=== PATIENT | female | born 1930 | race Caucasian/White ===

== ENCOUNTER 2016-06-22 12:34 | Inpatient (IN) | payer MEDICARE ==
[~2016-06-22] VITALS: Ht 167.6 cm; Wt 75.6 kg
[~2016-06-22 12:34] MED LIST: ACID REDUCER10 MG PO; ALDACTONE 25MG25 MG NG; ALDACTONE 25MG25 MG PO; ARICEPT 5MG TAB5 MG PO; ASPIRIN 81MG TA81 MG PO; ASPIRIN EC325 MG PO; ATORVASTATIN CA20 M1 PO; ATORVASTATIN CA20 MG PO; AVAPRO 150MG T150 MG PO; BACTRIM DS 8001 TAB PO; CALCIUM 600/VIT1 CAP PO; CALCIUM 600MG+D1 TAB PO; CEFDINIR300 M1 PO; CENTRUM SILVER1 TAB PO; CIPRO 500MG TA500 MG PO; COMBIVENT INH14.7 GM IN; COMBIVENT RESPI1 SPR IH; COMBIVENT1 ARO IH; CRESTOR10 MG PO; DEMADEX20 MG PO; DETROL LA 2 MG C2 MG PO; DETROL LA4 MG PO; DOCUSATE SODIU250 M1 PO; DONEPEZIL 10MG10 MG PO; DONEPEZIL 5MG TA5 MG PO; FAMOTIDINE 20MG20 MG PO; FAMOTIDINE20 MG PO; FERROUS SULFAT200 M1 PO; FERROUS SULFAT325 M2 PO; FLEXERIL10 M1 PO; FLONASE 50 MCG16 GM; FUROSEMIDE40 MG PO; GABAPENTIN100 M1 PO; GLIPIZIDE 5MG TA5 MG PO; GOOD NEIGHBOR P10 M1 PO; IBU600 MG PO; K-DUR 1010 MEQ PO; LASIX20 MG PO; LEADER NATURA500 MCG PO; LEVAQUIN500 MG PO; LEVOFLOXACIN250 MG PO; LIPITOR10 MG PO; LISINOPRIL 20MG20 MG PO; LORTAB 5/3251 TAB PO; LOSARTAN POTASS50 MG PO; MACROBID 100MG100 MG PO; MACROBID100 M3 PO; MEDROL 4MG. DOSE4 MG PO; METOLAZONE 2.52.5 MG PO; METOPROLOL 25 M25 MG PO; MORPHINE 2MG.2 MG/ML IJ; MULTI VITAMINS1 TAB PO; NAMENDA XR7 MG PO; NAMENDA10 MG PO; NAMZARIC1 ECC PO; NYSTATIN 1100000 UNI PO; OMNICEF 300 MG300 MG PO; ONDANSETRON4 MG/2 M2 IJ; OXYBUTYNIN CHLOR5 M1 PO; OXYBUTYNIN5 MG PO; PANTOPRAZOLE SO40 M1 PO; POTASSIUM CHLO10 ME1 PO; POTASSIUM CHLO10 ME3 PO; POTASSIUM CHLO20 ME2 PO; PREDNISONE1 MG PO; PROAIR HFA0.09 MG/AC IH; PROTONIX 40MG T40 MG PO; REQUIP0.5 MG PO; SEPTRA DS 800 M1 TAB PO; SPIRONOLACTONE25 MG PO; STERAPRED5 MG PO; TESSALON PERLE100 MG PO; TOLTERODINE TART4 MG PO; TORSEMIDE 20MG20 MG PO; TORSEMIDE20 M1 PO; TORSEMIDE20 MG PO; TYLENOL W/CODEI1 TA1 PO; TYLENOL325 MG PO; VITAMIN B121000 MC2 PO; VITAMIN D1000 IU PO; XYZAL5 MG PO; ZANTAC 150150 MG PO
[2016-06-22 12:36] VITALS: BP 105/56
--- NOTE | 2016-06-22 13:07 | Emergency Room Report ---
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 PT WAS NOTED TO BE DIAPHORETIC BY EMS. 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 N Clinical Suspician of Infection? N Mental Status: 3 - Acutely Altered Sepsis Risk:Possible Sepsis Risk Have you (or family members/close friends) recently traveled outside the [place]? N If Yes, where/when: Have you had exposure to infectious disease within the past month? TB? Other? Specify: Source patient, RN notes reviewed Exam Limitations no limitations Comment Sent to the ED today from [place] with history that she has lost all control of bowels and urine. EMS noted pt to be diaphoretic when they picked her up to bring her here. She has history of being in the [place] in [facility] since Dec. but has been getting weaker and weaker and today not able to ambulate and no control of urine or bowels. She has history of Alzheimer's, CAD with CABG, CHF and CKD as well. Cardiac Chest Pain Chest pain indicative of cardiac No ALLERGIES Coded Allergies: adhesive tape (09/27/15) betamethasone (09/27/15) ibuprofen (09/27/15) theophylline (09/27/15) Home Medications Active Scripts Acetaminophen (Tylenol) 650 MG PO Q8HP PRN BREAKTHROUGH MOD TO SEV PAIN 30 Days Ref 2 Prov: 05/05/16 HYDROCODONE/ACETAMINOPHEN (Lortab 5-325 MG Tablet) 1 TAB PO QID #120 TAB Prov: 10/13/15 Gabapentin (Gabapentin 100MG) 200 MG PO QHS #2 CAPSULE Ref 2 Prov: 10/13/15 Reported Medications ASPIRIN (Aspirin) 81 MG PO DAILY Spironolactone (Aldactone) 25 MG PO DAILY MEMANTINE HCL/DONEPEZIL HCL (Namzaric 28 MG-10 MG Capsule) 1 ECC PO DAILY Ferrous Sulfate (Ferrous Sulfate 325MG) 325 MG PO BID Potassium Chloride (K-Tab ER) 10 MEQ PO BID Furosemide (Lasix) 20 MG PO BID LEVOCETIRIZINE DIHYDROCHLORIDE (Xyzal) 5 MG PO QOD Pantoprazole Sodium (Protonix 40MG TAB) 40 MG PO DAILY ROPINIROLE HCL (Ropinirole 1MG) 1 MG PO TID History Medical History General CAD? No Angina: Yes [place]: No Hypertension? Yes Hyperlipidemia? Yes CHF? Yes DVT? No PE? No COPD? Yes Asthma? Yes Anemia? Yes GERD? Yes Gastric ulcers? No GI Bleed? No Hernia? No Thyroid Problems? No Hypothyroidism? No CVA? No Seizures? No Diabetes? No Renal Insuffiency? No End Stage Renal Disease? No UTI? No Stones? No BPH? No GB Disease: Yes Nephritic Syndrome? No Asplenia? No Hepatitis? No Sickle Cell Disease? No Arthritis? Yes Migraines? No Cataracts? Yes Glaucoma? No MRSA? No HIV? No TB? No Anxiety? No Depression? Yes Cancer? No More? No Additional hx: DEMENTIA BLADDER CONTROL BLE EDEMA Immunization Hx DT/Tetanus Unknown Flu 2016 Pneumonia Received In Past Surgical Hx Previous Surgery?Y GALLBLADDEER CABGX4 Eyes-cataracts Hysterect Gallbladd AAA REPAIR R HIP LT HIP Family History Family Hx Diabetes Yes CAD Yes Hypertension Yes Hyperlipidemia Yes Cancer Yes TB No Social History Smoking Hx Smoker: Former Smoker Tobacco: No Type N/A Packs/day N/A Are you/the child exposed to second-hand smoke: No Alcohol Alcohol: No Review of Systems All Other Systems Reviewed and Negative Constitutional see HPI, diaphoresis Eyes see HPI Respiratory denies no symptoms reported Cardiovascular denies no symptoms reported Gastrointestinal see HPI Genitourinary see HPI. Skin see HPI Physical Exam Vital Signs Vital Signs Date Time Temp Pulse Resp B/P Pulse O2 O2 Flow FiO2 Ox Delivery Rate 06/22 1608 63 20 93/47 97 06/22 1528 63 20 98/51 98 06/22 1444 67 20 97/42 99 06/22 1409 72 20 93/35 90 06/22 1406 72 101/50 06/22 1330 71 20 135/51 91 06/22 1327 70 103/53 06/22 1327 70 107/57 06/22 1236 98.7 92 20 105/56 91 General Appearance moderate distress Ear, Nose, Throat dry mucous membranes Respiratory Status No: respiratory distress. Lung Sounds bilateral: normal breath sounds. Cardiovascular normal exam, regular rate/rhythm Gastrointestinal normal bowel sounds, normal exam, non tender Extremities trace edema Neurologic confused but says she does not feel well Medical Decision Making LABS/Meds/Orders Pt receiving controlled substance in ED? No Results/Orders Laboratory Tests 06/22/16 1345: Lactic Acid 2.1 H 06/22/16 1340: Urine Color YELLOW, Urine Appearance CLOUDY, Urine pH 6.0, Ur Specific [place] 1.020, Urine Protein 2+ H, Urine Ketones NEGATIVE, Urine Blood 2+ H, Urine Nitrate NEGATIVE, Urine Bilirubin NEGATIVE, Urine Urobilinogen 0.2, Ur Leukocyte Esterase 1+ H, Urine RBC 20-50, Urine WBC 20-50, Ur Squamous Epith Cells OCC, Urine Bacteria 4+, Urine Glucose NEGATIVE 06/22/16 1250: B-Natriuretic Peptide 213 H 06/22/16 1250: Sodium 142, Potassium 4.0, Chloride 102, Carbon Dioxide 29, BUN 33 H, Creatinine 2.4 H, Estimated Creat Clear 20 L, Estimated GFR (MDRD) 19 *L, Glucose 145 H, Calcium 9.1, Total Bilirubin 0.8, AST 104 H, ALT 83 H, Alkaline Phosphatase 220 H, Creatine Kinase 117, CK-MB (CK-2) Rel Index 0.5, CK and CKMB Interp 0.6, Troponin I 0.12 H, Total Protein 6.7, Albumin 3.1 L, Globulin 3.6 H, Albumin/Globulin Ratio 0.9 L, WBC 26.8 *H, RBC 4.48, Hgb 14.2, Hct 43.6, MCV 97.2, RDW 13.2, Plt Count 227, MPV 7.0 L, Gran % 93.3 H, Gran # 25.0 H, Total Counted 100, Lymphocytes % 2.5 L, Monocytes % 3.0, Eosinophils % 0.8, Basophils % 0.4, Neutrophils 79 H, Band Neutrophils 12 H, Lymphocytes ( Manual) 5 L, Lymphocytes # 0.7, Monocytes (Manual) 4, Monocytes # 0.8, Eosinophils # 0.2, Basophils # 0.1, Platelet Estimate NORMAL, PUBS MCHC 32.5, MCH 31.6 H 06/22/16 1239: Influenza Type A Ag NOT DETECTED, Influenza Type B Ag NOT DETECTED Current Medication Orders Sig/Rell Start time Last Medication Dose Route Stop Time Status Admin Sodium Chloride 1,000 ML .STK-MED ONE 06/22 1637 DC IV Sodium Chloride 50 ML .STK-MED ONE 06/22 1529 DC IV Piperacillin Sod/ 0 .STK-MED ONE 06/22 1521 DCr Tazobactam Sod .ROUTE Piperacillin Sod/ 3.375 GM ONCE ONE 06/22 1445 DCr 06/22 Tazobactam Sod IV 06/22 1514 1545 Sodium Chloride 50 ML Sodium Chloride 1,000 ML .Q4H 06/22 1330 AC 06/22 IV 06/22 1729 1331 Sodium Chloride 10 ML PRN PRN 06/22 1330 AC 06/22 IV 06/23 1317 1331 Sodium Chloride 10 ML PRN PRN 06/22 1330 AC IV 06/23 1323 Sodium Chloride 1,000 ML .STK-MED ONE 06/22 1329 DC IV Orders Procedure Date/time Status DIET-NOTHING BY MOUTH 06/[address] ABD/PELVIS REQ 06/22 1435 Complete LACTIC ACID FOLLOW UP 06/22 1423 Active BRAIN NATRIURETIC PEPTIDE 06/22 1404 Complete IV SALINE LOCK 06/22 1323 Active CULTURE, BLOOD 06/22 1320 Active ELECTROCARDIOGRAM REQUEST 06/22 1319 Active CHEST-PORTABLE 06/22 1319 Active ORTHOSTATIC B/P 06/22 1319 Active CULTURE, URINE 06/22 1319 Active CULTURE, BLOOD 06/22 1319 Active URINALYSIS/COMPLETE 06/22 1319 Complete LACTIC ACID 06/22 1319 Complete DIARRHEA PANEL, PCR 06/22 1319 Active CBC WITH AUTO DIFF 06/22 1319 Complete CARDIAC ENZYMES 06/22 1319 Complete CHEM 12 PROFILE 06/22 1319 Complete DIFFERENTIAL-WBC 06/22 1250 Complete INFLUENZA A&B ANTIGENS 06/22 1249 Complete 12 LEAD EKG-BESSON (INITIAL) 06/22 UNK Active XRAY/CT/US XRAY/CT/US XRAY chest, abdomen XR interpretation by reviewed by me Xray Results normal/NAD Departure Departure Time of Disposition 1647 Disposition Still a Patient Clinical Impression Primary Impression: Acute pyelonephritis Secondary Impressions: Sepsis Qualifiers: Sepsis type: sepsis due to unspecified organism Qualified Code: A41.9 - Sepsis, unspecified organism Condition STABLE Referrals Domenico Cole MD (Family) Additional Instructions Admitted for IVF"s and IV antibiotics by Dr. Cole and stabilization. Discharge Counseling Counseled pt/family regarding diagnosis, test results, medications/RX, follow up needs ED Critical Care Critical Care No If Critical Care minutes are documented, the time involved in the performance of seperately reportable procedures was not counted toward critical care time documented. I directly delivered medical care to this critically ill and/or injured patient. Timely evaluation and treatment was necessary to address the significant organ system(s) dysfunction present in this patient. at 1650
[2016-06-22 13:40] LABS: LYMPH # 0.7 K/mm3 (0.7-4.5); LYMPH % 2.5 % (10-50.0)
[2016-06-22 13:49] LABS: URINE BILIRUBIN - DIPSTICK NEGATIVE (NEG); URINE BLOOD 2+ (NEG)
[2016-06-22 13:54] LABS: URINE SQUAMOUS CELLS OCC #/hpf (0-5)
[2016-06-22 14:13] LABS: HEMOGLOBIN 14.2 g/dL (12.2-16.2)
[2016-06-22 14:15] LABS: NEUTROPHILS 79 % (42-76)
[2016-06-22] MEDS ORDERED: ROPINIROLE 0.0.25 MG PO (14:18)
--- NOTE | 2016-06-22 15:23 | RADIOLOGY REPORT PS360 ---
ABDOMEN-FLAT UPRIGHT COMPARISON: KUB 07/21/2014 HISTORY: Shortness of breath abdominal pain TECHNIQUE: PA chest KUB and upright abdomen FINDINGS: The lung churchill are well expanded. There are coarse bronchovascular markings in the right lower lobe suggesting postinflammatory scarring. The right upper lung field and left lung field are clear. Cardiac size is normal though there is mild aortic tortuosity. There are sternal wire sutures noted. Abdominal films show an increased amount of large and small bowel gas in a nonobstructive pattern. There are no abnormal soft tissue shadows. There are Surgical clips overlying the lower lumbar spine and there is mild dextroscoliotic curvature of the lumbar spine. There are bilateral hip prosthesis IMPRESSION: 1. Nonacute chest findings. 2. Mildly abnormal nonspecific bowel gas pattern likely consistent with mild gastroenteritis.
--- NOTE | 2016-06-22 15:40 | RADIOLOGY REPORT PS360 ---
CT ABD PELVIS W/O CONTRAST COMPARISON: CT scan abdomen pelvis 05/18/2015 HISTORY: Abdominal pain generalized weakness TECHNIQUE: Multiple axial scans obtained from the hemidiaphragms to the pelvic floor and were performed without IV or oral contrast. Sagittal and coronal reformatted images were evaluated as well. FINDINGS: Scans through the lower chest show post inflammatory pleural and parenchymal scarring in the right lower lobe and right posterior gutter. There is a large hiatal hernia. The remainder of the stomach appears normal. The liver is grossly normal. Spleen is normal size containing multiple calcifications. The pancreas is normal, there has been a previous cholecystectomy. The adrenal glands are normal. The kidneys are normal in size, there is a nonobstructing calculus midpole left kidney, there is no obstructive uropathy of either kidney. However there is some mild stranding of Gerota's fascia around the right kidney compared to the left and pyelonephritis right kidney is a possibility. Small bowel appears grossly normal. Do not definitely identify the appendix but there are no pericecal inflammatory changes noted. There is liquid stool in the cecum and ascending colon. There is prominent diffuse diverticulosis of the lower descending and sigmoid colon. There is no obvious evidence of diverticulitis however there is prominent streak artifact crossing the middle lower pelvis secondary to the bilateral total hip prosthesis. The urinary bladder is grossly normal. There has been a previous hysterectomy. There is a compression fracture of L2 with approximately 40% loss of height which has occurred since the previous CT scan in May 2015. There is no significant retropulsion of the partially collapsed vertebrae. The spinal canal is normal in size throughout. There are marked hypertrophic facet changes L4-5 and L5-S1. There is prominent arteriosclerotic calcification of the abdominal aorta with borderline aneurysmal dilatation of the infrarenal aorta just above the bifurcation. IMPRESSION: 1. Large hiatal hernia. 2. Diffuse diverticulosis of the lower descending and sigmoid colon without definite evidence of diverticulitis though portions of the lower sigmoid colon are obscured by streak artifact 3. 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 4. Subtle stranding of Gerota's fascia right kidney possibly secondary to pyelo nephritis 5 Semiacute compression fracture L2
[2016-06-22 17:33] LABS: ARTERIAL PO2 69.6 MMHG (80-100); ARTERIAL TCO2 18.6 MMOL/L (23-27)
[2016-06-22 17:34] LABS: ALLEN'S TEST Y; OXYGEN 3
[2016-06-22 17:49] LABS: HEMOGLOBIN 14.5 g/dL (12.2-16.2); LYMPH # 0.6 K/mm3 (0.7-4.5); LYMPH % 40.4 % (10-50.0)
[2016-06-22 18:40] VITALS: BP 145/57
[2016-06-22 18:44] VITALS: BP 145/57
[2016-06-22 19:27] LABS: LYMPH # 0.3 K/mm3 (0.7-4.5); LYMPH % 14.7 % (10-50.0)
[2016-06-22 19:59] VITALS: BP 93/44
[2016-06-22 23:45] VITALS: BP 94/50
[2016-06-23] VITALS (9 sets, daily range): BP systolic 83–107; BP diastolic 40–64
[2016-06-23 07:50] LABS: LYMPH # 0.7 K/mm3 (0.7-4.5); LYMPH % 2.6 % (10-50.0)
[2016-06-23 07:59] LABS: HEMOGLOBIN 11.5 g/dL (12.2-16.2)
--- NOTE | 2016-06-23 08:16 | HISTORY AND PHYSICAL REPORT ---
Demographics: Admit date: 06/22/16 Chief complaint: MS changes, fever PRIMARY DIAGNOSIS: PYELONEPHRITIS Allergies: Coded Allergies: adhesive tape (09/27/15) betamethasone (09/27/15) ibuprofen (09/27/15) theophylline (09/27/15) History of present illness: History of present illness: 85-year-old skilled nursing resident with Alzheimer's dementia and history of repetitive urinary tract infections who was brought to the emergency department because of fever, mental status change and diarrhea. Found to have leukocytosis, evidence of sepsis and admitted to hospital for sepsis protocol, broad-spectrum antibiotics and fluids. This morning daughter reports that she rested comfortably overnight, but has not been able to eat or have significant conversations. Past medical history: Family HX Diabetes Yes CAD Yes Hypertension Yes Hyperlipidemia Yes Cancer Yes TB No Immunization HX DT/Tetanus Unknown Flu 2016 Pneumonia Received In Past TB Test in last year Yes Result Negative General CAD? No Angina: Yes DC: No Hypertension? Yes Hyperlipidemia? Yes CHF? Yes DVT? No PE? No COPD? Yes Asthma? Yes Anemia? Yes GERD? Yes Gastric ulcers? No GI Bleed? No Hernia? No Thyroid Problems? No Hypothyroidism? No CVA? No Seizures? No Diabetes? No Renal Insuffiency? No UTI? No Stones? No BPH? No GB Disease: Yes Nephritic Syndrome? No Asplenia? No Hepatitis? No Sickle Cell Disease? No Arthritis? Yes Migraines? No Cataracts? Yes Glaucoma? No MRSA? No HIV? No TB? No Anxiety? No Depression? Yes Cancer? No More? No Additional hx: DEMENTIA BLADDER CONTROL BLE EDEMA Past Surgical HX Previous Surgery?Y GALLBLADDEER CABGX4 Eyes-cataracts Hysterect Gallbladd AAA REPAIR R HIP LT HIP Current home meds: Active Scripts Acetaminophen (Tylenol) 650 MG PO Q8HP PRN BREAKTHROUGH MOD TO SEV PAIN 30 Days Ref 2 Prov: 05/05/16 HYDROCODONE/ACETAMINOPHEN (Lortab 5-325 MG Tablet) 1 TAB PO QID #120 TAB Prov: 10/13/15 Gabapentin (Gabapentin 100MG) 200 MG PO QHS #2 CAPSULE Ref 2 Prov: 10/13/15 Reported Medications ASPIRIN (Aspirin) 81 MG PO DAILY Spironolactone (Aldactone) 25 MG PO DAILY MEMANTINE HCL/DONEPEZIL HCL (Namzaric 28 MG-10 MG Capsule) 1 ECC PO DAILY Ferrous Sulfate (Ferrous Sulfate 325MG) 325 MG PO BID Potassium Chloride (K-Tab ER) 10 MEQ PO BID Furosemide (Lasix) 20 MG PO BID LEVOCETIRIZINE DIHYDROCHLORIDE (Xyzal) 5 MG PO QOD Pantoprazole Sodium (Protonix 40MG TAB) 40 MG PO DAILY ROPINIROLE HCL (Ropinirole 1MG) 1 MG PO TID Social Hx: Smoking HX Tobacco No Type N/A Packs/day N/A Are you/the child exposed to second-hand smoke: No Alcohol Alcohol: No Hx of Drug Use Drug Use? No Patien't marital status is Patient's support system is excellent Comment: Maintains DNR status a local skilled nursing Review of systems: Constitutional fever, malaise, weakness. Respiratory No: no symptoms reported. Cardiovascular No no symptoms reported Gastrointestinal/Abdominal see HPI Genitourinary see HPI. Musculoskeletal see HPI. Neurological Yes: weakness. Exam: Lab data for last 24 hours: Laboratory Tests 06/23/16 0620: Sodium 144, Potassium 4.4, Chloride 106, Carbon Dioxide 25, BUN 38 H, Creatinine 2.7 H, Estimated Creat Clear 17 L, Estimated GFR (MDRD) 17 *L, Glucose 111 H, Calcium 8.0 L, WBC 28.5 *H, RBC 3.63 L, Hgb 11.5 L, Hct 34.9 L, MCV 96.2, RDW 13.3, Plt Count 169, MPV 6.8 L, Gran % 95.3 H, Gran # 27.1 H , Lymphocytes % 2.6 L, Monocytes % 1.8, Eosinophils % 0.1, Basophils % 0.2, Lymphocytes # 0.7, Monocytes # 0.5, Eosinophils # 0.0, Basophils # 0.1, PUBS MCHC 32.5, MCH 31.3 H 06/22/162057: POC Glucose 97 06/22/161814: Creatine Kinase 138, CK-MB (CK-2) Rel Index 0.8, CK and CKMB Interp 1.1, Troponin I 0.06, WBC 2.4 L, RBC 4.36, Hgb 14.0, Hct 42.1, MCV 96.5, RDW 13.2, Plt Count 180, MPV 6.9 L, Gran % 83.1 H, Gran # 2.0, Lymphocytes % 14.7, Monocytes % 2.0, Eosinophils % 0.3, Basophils % 0.0 L, Lymphocytes # 0.3 L, Monocytes # 0.1, Eosinophils # 0.0, Basophils # 0.0, PUBS MCHC 33.3, MCH 32.1 H 06/22/16 1740: Sodium 145, Potassium 4.9, Chloride 105, Carbon Dioxide 25, BUN 32 H, Creatinine 2.5 H, Estimated Creat Clear 19 L, Estimated GFR (MDRD) 18 *L, Glucose 122 H, Calcium 8.3 L, Total Bilirubin 0.6, AST 76 H, ALT 73, Alkaline Phosphatase 206 H, Total Protein 6.0 L, Albumin 2.9 L, Globulin 3.1, Albumin/ Globulin Ratio 0.9 L, WBC 1.5 *L, RBC 4.55, Hgb 14.5, Hct 44.9, MCV 98.6 H, RDW 13.1, Plt Count 198, MPV 6.7 L, Gran % 53.4, Gran # 0.8 *L, Lymphocytes % 40.4, Monocytes % 5.5, Eosinophils % 0.3, Basophils % 0.4, Lymphocytes # 0.6 L, Monocytes # 0.1, Eosinophils # 0.0, Basophils # 0.0, PUBS MCHC 32.3, MCH 31.9 H 06/22/16 1732: ABG pH 7.35, ABG pCO2 (Temp Corrct 32.9 L, ABG pO2 (Temp Correct 69.6 L, ABG HCO3 17.6 L, ABG Total CO2 18.6 L, ABG O2 Sat (Calculated) 92.1, ABG Base Excess -8.0 L, Adrian Test Y, Blood Gas Comments R/R 06/22/16 1700: Lactic Acid 5.4 H 06/22/16 1345: Lactic Acid 2.1 H 06/22/16 1340: Urine Color YELLOW, Urine Appearance CLOUDY, Urine pH 6.0, Ur Specific [place] 1.020, Urine Protein 2+ H, Urine Ketones NEGATIVE, Urine Blood 2+ H, Urine Nitrate NEGATIVE, Urine Bilirubin NEGATIVE, Urine Urobilinogen 0.2, Ur Leukocyte Esterase 1+ H, Urine RBC 20-50, Urine WBC 20-50, Ur Squamous Epith Cells OCC, Urine Bacteria 4+, Urine Glucose NEGATIVE 06/22/16 1250: B-Natriuretic Peptide 213 H 06/22/16 1250: Sodium 142, Potassium 4.0, Chloride 102, Carbon Dioxide 29, BUN 33 H, Creatinine 2.4 H, Estimated Creat Clear 20 L, Estimated GFR (MDRD) 19 *L, Glucose 145 H, Calcium 9.1, Total Bilirubin 0.8, AST 104 H, ALT 83 H, Alkaline Phosphatase 220 H, Creatine Kinase 117, CK-MB (CK-2) Rel Index 0.5, CK and CKMB Interp 0.6, Troponin I 0.12 H, Total Protein 6.7, Albumin 3.1 L, Globulin 3.6 H, Albumin/Globulin Ratio 0.9 L, WBC 26.8 *H, RBC 4.48, Hgb 14.2, Hct 43.6, MCV 97.2, RDW 13.2, Plt Count 227, MPV 7.0 L, Gran % 93.3 H, Gran # 25.0 H, Total Counted 100, Lymphocytes % 2.5 L, Monocytes % 3.0, Eosinophils % 0.8, Basophils % 0.4, Neutrophils 79 H, Band Neutrophils 12 H, Lymphocytes ( Manual) 5 L, Lymphocytes # 0.7, Monocytes (Manual) 4, Monocytes # 0.8, Eosinophils # 0.2, Basophils # 0.1, Platelet Estimate NORMAL, PUBS MCHC 32.5, MCH 31.6 H 06/22/16 1239: Influenza Type A Ag NOT DETECTED, Influenza Type B Ag NOT DETECTED Microbiology 06/22 1344 BLOOD: Anaerobic Blood Culture - RECD 06/22 1344 BLOOD: Aerobic Blood Culture - RECD 06/22 1344 BLOOD: Anaerobic Blood Culture - RECD 06/22 1344 BLOOD: Aerobic Blood Culture - RECD 06/23 1339 URINE,FO: Urine Culture - CAN Cancelled: @DUPLICATE 06/23 1339 URINE CATH: Urine Culture - RECD Admission vital signs: 1ST Vital Signs Result Date Time Pulse Ox 91 06/22 1236 B/P 105/56 06/22 1236 Temp 98.7 06/22 123 Pulse 92 06/22 1236 Resp 20 06/22 1236 O2 Flow Rate 2 06/22 1658 O2 Delivery OXYGEN 06/22 1844 Additional information: Minimally responsive white female intraoral mucosa and symmetric facial nerves. Anterior lung churchill are clear, heart rate regular. Abdomen is soft and nontender. Poor skin turgor noted but present extremities are warm and without acute rashes. Plan: Problem List 1. Sepsis 2. Acute pyelonephritis 3. Hypoxia Plan: Initial blood culture reported labs morning shows Escherichia coli. Patient is on broad-spectrum antibiotics. Continue this. Family's main concern is her comfort. We will continue Tylenol p.r.n. as this seems to have done a good job with pain control yesterday. Morphine if needed. Continue to respect DNR status. at 0816
--- NOTE | 2016-06-23 09:13 | CONSULT NOTE ---
Pharmacokinetic Consult Date of consult: 06/23/16 Time of consult: 910 Referring provider: DR. UMANZOR Reason for consult: GENTAMICIN DOSING Allergies: Coded Allergies: adhesive tape (09/27/15) betamethasone (09/27/15) ibuprofen (09/27/15) theophylline (09/27/15) Home Medications: Active Scripts Acetaminophen (Tylenol) 650 MG PO Q8HP PRN BREAKTHROUGH MOD TO SEV PAIN 30 Days Ref 2 Prov: 05/05/16 HYDROCODONE/ACETAMINOPHEN (Lortab 5-325 MG Tablet) 1 TAB PO QID #120 TAB Prov: 10/13/15 Gabapentin (Gabapentin 100MG) 200 MG PO QHS #2 CAPSULE Ref 2 Prov: 10/13/15 Reported Medications ASPIRIN (Aspirin) 81 MG PO DAILY Spironolactone (Aldactone) 25 MG PO DAILY MEMANTINE HCL/DONEPEZIL HCL (Namzaric 28 MG-10 MG Capsule) 1 ECC PO DAILY Ferrous Sulfate (Ferrous Sulfate 325MG) 325 MG PO BID Potassium Chloride (K-Tab ER) 10 MEQ PO BID Furosemide (Lasix) 20 MG PO BID LEVOCETIRIZINE DIHYDROCHLORIDE (Xyzal) 5 MG PO QOD Pantoprazole Sodium (Protonix 40MG TAB) 40 MG PO DAILY ROPINIROLE HCL (Ropinirole 1MG) 1 MG PO TID Height (feet): 5 Height (inches): 6.00 Medical History: CAD? No Angina: Yes [place]: No Hypertension? Yes Hyperlipidemia? Yes CHF? Yes DVT? No PE? No COPD? Yes Asthma? Yes Anemia? Yes GERD? Yes Gastric ulcers? No GI Bleed? No Hernia? No Thyroid Problems? No Hypothyroidism? No CVA? No Seizures? No Diabetes? No Renal Insuffiency? No UTI? No Stones? No BPH? No GB Disease: Yes Nephritic Syndrome? No Asplenia? No Hepatitis? No Sickle Cell Disease? No Arthritis? Yes Migraines? No Cataracts? Yes Glaucoma? No MRSA? No HIV? No TB? No Anxiety? No Depression? Yes Cancer? No More? No Additional hx: DEMENTIA BLADDER CONTROL BLE EDEMA Labs: Laboratory Tests 06/23/16 0620: Sodium 144, Potassium 4.4, Chloride 106, Carbon Dioxide 25, BUN 38 H, Creatinine 2.7 H, Estimated Creat Clear 17 L, Estimated GFR (MDRD) 17 *L, Glucose 111 H, Calcium 8.0 L, WBC 28.5 *H, RBC 3.63 L, Hgb 11.5 L, Hct 34.9 L, MCV 96.2, RDW 13.3, Plt Count 169, MPV 6.8 L, Gran % 95.3 H, Gran # 27.1 H , Lymphocytes % 2.6 L, Monocytes % 1.8, Eosinophils % 0.1, Basophils % 0.2, Lymphocytes # 0.7, Monocytes # 0.5, Eosinophils # 0.0, Basophils # 0.1, PUBS MCHC 32.5, MCH 31.3 H 06/22/162057: POC Glucose 97 06/22/16 181: Creatine Kinase 138, CK-MB (CK-2) Rel Index 0.8, CK and CKMB Interp 1.1, Troponin I 0.06, WBC 2.4 L, RBC 4.36, Hgb 14.0, Hct 42.1, MCV 96.5, RDW 13.2, Plt Count 180, MPV 6.9 L, Gran % 83.1 H, Gran # 2.0, Lymphocytes % 14.7, Monocytes % 2.0, Eosinophils % 0.3, Basophils % 0.0 L, Lymphocytes # 0.3 L, Monocytes # 0.1, Eosinophils # 0.0, Basophils # 0.0, PUBS MCHC 33.3, MCH 32.1 H 06/22/16 1740: Sodium 145, Potassium 4.9, Chloride 105, Carbon Dioxide 25, BUN 32 H, Creatinine 2.5 H, Estimated Creat Clear 19 L, Estimated GFR (MDRD) 18 *L, Glucose 122 H, Calcium 8.3 L, Total Bilirubin 0.6, AST 76 H, ALT 73, Alkaline Phosphatase 206 H, Total Protein 6.0 L, Albumin 2.9 L, Globulin 3.1, Albumin/ Globulin Ratio 0.9 L, WBC 1.5 *L, RBC 4.55, Hgb 14.5, Hct 44.9, MCV 98.6 H, RDW 13.1, Plt Count 198, MPV 6.7 L, Gran % 53.4, Gran # 0.8 *L, Lymphocytes % 40.4, Monocytes % 5.5, Eosinophils % 0.3, Basophils % 0.4, Lymphocytes # 0.6 L, Monocytes # 0.1, Eosinophils # 0.0, Basophils # 0.0, PUBS MCHC 32.3, MCH 31.9 H 06/22/16 1732: ABG pH 7.35, ABG pCO2 (Temp Corrct 32.9 L, ABG pO2 (Temp Correct 69.6 L, ABG HCO3 17.6 L, ABG Total CO2 18.6 L, ABG O2 Sat (Calculated) 92.1, ABG Base Excess -8.0 L, Adrian Test Y, Blood Gas Comments R/R 06/22/16 1700: Lactic Acid 5.4 H 06/22/16 1345: Lactic Acid 2.1 H 06/22/16 1340: Urine Color YELLOW, Urine Appearance CLOUDY, Urine pH 6.0, Ur Specific [place] 1.020, Urine Protein 2+ H, Urine Ketones NEGATIVE, Urine Blood 2+ H, Urine Nitrate NEGATIVE, Urine Bilirubin NEGATIVE, Urine Urobilinogen 0.2, Ur Leukocyte Esterase 1+ H, Urine RBC 20-50, Urine WBC 20-50, Ur Squamous Epith Cells OCC, Urine Bacteria 4+, Urine Glucose NEGATIVE 06/22/16 1250: B-Natriuretic Peptide 213 H 06/22/16 1250: Sodium 142, Potassium 4.0, Chloride 102, Carbon Dioxide 29, BUN 33 H, Creatinine 2.4 H, Estimated Creat Clear 20 L, Estimated GFR (MDRD) 19 *L, Glucose 145 H, Calcium 9.1, Total Bilirubin 0.8, AST 104 H, ALT 83 H, Alkaline Phosphatase 220 H, Creatine Kinase 117, CK-MB (CK-2) Rel Index 0.5, CK and CKMB Interp 0.6, Troponin I 0.12 H, Total Protein 6.7, Albumin 3.1 L, Globulin 3.6 H, Albumin/Globulin Ratio 0.9 L, WBC 26.8 *H, RBC 4.48, Hgb 14.2, Hct 43.6, MCV 97.2, RDW 13.2, Plt Count 227, MPV 7.0 L, Gran % 93.3 H, Gran # 25.0 H, Total Counted 100, Lymphocytes % 2.5 L, Monocytes % 3.0, Eosinophils % 0.8, Basophils % 0.4, Neutrophils 79 H, Band Neutrophils 12 H, Lymphocytes ( Manual) 5 L, Lymphocytes # 0.7, Monocytes (Manual) 4, Monocytes # 0.8, Eosinophils # 0.2, Basophils # 0.1, Platelet Estimate NORMAL, PUBS MCHC 32.5, MCH 31.6 H 06/22/16 1239: Influenza Type A Ag NOT DETECTED, Influenza Type B Ag NOT DETECTED Microbiology 06/22 1344 BLOOD: Anaerobic Blood Culture - RECD 06/22 1344 BLOOD: Aerobic Blood Culture - RECD 06/22 1344 BLOOD: Anaerobic Blood Culture - RECD 06/22 1344 BLOOD: Aerobic Blood Culture - RECD 06/23 1339 URINE,FO: Urine Culture - CAN Cancelled: @DUPLICATE 06/23 1339 URINE CATH: Urine Culture - RECD Problem List: 1. Sepsis 2. Acute pyelonephritis Plan: BASED ON PATIENT FACTORS, RECOMMEND GENTAMICIN 300 MG (4.5 MG/KG/DBW) IV Q48H. WILL OBTAIN GENTAMICIN LEVELS AT 4 AND 12 HOURS POST-INFUSION. PHARMACY WILL FOLLOW DAILY AND ADJUST APPROPRIATE. at 0913
--- NOTE | 2016-06-23 11:33 | PHARMACY CLINIC NOTE ---
Patient Demographics Patient Demographics Admission date: 06/22/16 Date: 06/23/16 Time: 1132 Allergies Coded Allergies: adhesive tape (09/27/15) betamethasone (09/27/15) ibuprofen (09/27/15) theophylline (09/27/15) HEIGHT- FT: 5 IN: 6.00 K.353 VTE General Information Labs: Laboratory Tests 06/23 06/22 06/22 06/22 0620 1815 1740 1250 Hematology Hgb (12.2 - 16.2 g/dL) 11.5 L 14.0 14.5 14.2 Hct (37.0 - 47.0 %) 34.9 L 42.1 44.9 43.6 Plt Count (142 - 424 K/mm3) 169 180 198 227 Disclaimer The following section includes nursing documentation that has been pulled in for pharmacy review. Patient's VTE score: 5 Patient's VTE Risk: LOW RISK Clinical trial participant? No VTE prophylaxis [id number] VTE prophylaxis ordered? Yes Type of prophylaxis/treatment: ICD at 1131
[2016-06-23] MEDS ORDERED: NORCO 325 MG-51 TAB PO (11:37)
[2016-06-23] MEDS ORDERED: LACTULOSE10 GM/15 M PO (11:43)
--- NOTE | 2016-06-23 14:14 | RADIOLOGY REPORT PS360 ---
CHEST-PORTABLE COMPARISON: PA and lateral chest 10/13/2015 HISTORY: Shortness of breath TECHNIQUE: AP upright chest FINDINGS: The lung churchill are well expanded and appear clear of infiltrate. There is minimal post inflammatory scarring in the right perihilar region and right lower lobe. There are sternal wire sutures and surgical clips likely from previous bypass procedure. There are tiny surgical clips in the right suprahilar region as well. IMPRESSION: Nonacute chest findings
[2016-06-24 03:44] VITALS: BP 101/58
[2016-06-24 05:55] LABS: AEROMONAS NOT DETECTED (NOT DETECTE); ASTROVIRUS NOT DETECTED (NOT DETECTE); CYCLOSPORA CAYETANENSIS NOT DETECTED (NOT DETECTE); E COLI O157 NOT DETECTED (NOT DETECTE); ENTEROAGGREGATIVE E COLI NOT DETECTED (NOT DETECTE); ENTEROPATHOGENIC E COLI NOT DETECTED (NOT DETECTE); ENTEROTOXIGENIC E COLI NOT DETECTED (NOT DETECTE); NOROVIRUS NOT DETECTED (NOT DETECTE); SAPOVIRUS NOT DETECTED (NOT DETECTE); SHIGA-LIKE TOXIN PROD. E COLI NOT DETECTED (NOT DETECTE); SHIGELLA/ENTEROINVASIVE E COLI NOT DETECTED (NOT DETECTE); VIBRIO CHOLERAE NOT DETECTED (NOT DETECTE)
--- NOTE | 2016-06-24 07:47 | ACUTE CARE PROGRESS NOTE (QUA) ---
Progress Notes Subjective Date 06/24/16 Time 0746 Note Patient looks remarkably better than yesterday, sitting up in bed, alert, some disorientation overnight, but drinking her liquid diet very well. Complains of overall body pain but breathing is much better. Anterior lung churchill are clear, abdomen soft, nontender, perfusion is good, heart rate regular. Objective Findings Last VS-Temp:97.7 B/P:101/58 Pulse:72 Resp:20 SaO2:91 OXYGEN Last weight lbs:166 oz:7 K.495 Method:Bed Scales Assessment/Plan Problem List 1. Sepsis Qualifiers: Sepsis type: sepsis due to unspecified organism Qualified Code: A41.9 - Sepsis, unspecified organism 2. Acute pyelonephritis 3. Hypoxia Patient condition Improving Plan: continue current care, reduce antibiotic coverage to match Escherichia coli sepsis. Advance diet, remove director of cardiac rehabilitation. On placement in anticipation of transfer to care home with long-term antibiotics. This inpt stay is expected to cross 2 MNs from start of care Yes at 0747
--- NOTE | 2016-06-24 07:47 | ACUTE CARE PROGRESS NOTE (QUA) ---
Progress Notes Subjective Date 06/24/16 Time 0746 Note Patient looks remarkably better than yesterday, sitting up in bed, alert, some disorientation overnight, but drinking her liquid diet very well. Complains of overall body pain but breathing is much better. Anterior lung churchill are clear, abdomen soft, nontender, perfusion is good, heart rate regular. Objective Findings Last VS-Temp:97.7 B/P:101/58 Pulse:72 Resp:20 SaO2:91 OXYGEN Last weight lbs:166 oz:7 K.495 Method:Bed Scales Assessment/Plan Problem List 1. Sepsis Qualifiers: Sepsis type: sepsis due to unspecified organism Qualified Code: A41.9 - Sepsis, unspecified organism 2. Acute pyelonephritis 3. Hypoxia Patient condition Improving Plan: continue current care, reduce antibiotic coverage to match Escherichia coli sepsis. Advance diet, remove ems educator. On placement in anticipation of transfer to detention with long-term antibiotics. This inpt stay is expected to cross 2 MNs from start of care Yes at 0747
[2016-06-24 08:00] VITALS: BP 133/66
[2016-06-24 09:03] VITALS: BP 133/66
--- NOTE | 2016-06-24 09:39 | CONSULT NOTE ---
Pharmacokinetic Consult Date of consult: 06/24/16 Time of consult: 936 Referring provider: DR. UMANZOR Reason for consult: GENTAMICIN LEVELS Allergies: Coded Allergies: adhesive tape (09/27/15) betamethasone (09/27/15) ibuprofen (09/27/15) theophylline (09/27/15) Home Medications: Active Scripts Acetaminophen (Tylenol) 650 MG PO Q8HP PRN BREAKTHROUGH MOD TO SEV PAIN 30 Days Ref 2 Prov: 05/05/16 Gabapentin (Gabapentin 100MG) 200 MG PO QHS #2 CAPSULE Ref 2 Prov: 10/13/15 Reported Medications ASPIRIN (Aspirin) 81 MG PO DAILY Potassium Chloride (K-Tab ER) 10 MEQ PO DAILY ROPINIROLE HCL (Ropinirole 0.25MG) 0.25 MG PO TID HYDROCODONE/ACETAMINOPHEN (Pelsor 5-325 Tablet) 1 TAB PO Q6HP PRN PAIN Lactulose (Lactulose) 20 GM PO DAILY Spironolactone (Aldactone) 25 MG PO DAILY MEMANTINE HCL/DONEPEZIL HCL (Namzaric 28 MG-10 MG Capsule) 1 ECC PO DAILY Ferrous Sulfate (Ferrous Sulfate 325MG) 325 MG PO BID Furosemide (Lasix) 20 MG PO BID LEVOCETIRIZINE DIHYDROCHLORIDE (Xyzal) 5 MG PO QOD Pantoprazole Sodium (Protonix 40MG TAB) 40 MG PO DAILY Height (feet): 5 Height (inches): 6.00 Medical History: CAD? No Angina: Yes [place]: No Hypertension? Yes Hyperlipidemia? Yes CHF? Yes DVT? No PE? No COPD? Yes Asthma? Yes Anemia? Yes GERD? Yes Gastric ulcers? No GI Bleed? No Hernia? No Thyroid Problems? No Hypothyroidism? No CVA? No Seizures? No Diabetes? No Renal Insuffiency? No UTI? No Stones? No BPH? No GB Disease: Yes Nephritic Syndrome? No Asplenia? No Hepatitis? No Sickle Cell Disease? No Arthritis? Yes Migraines? No Cataracts? Yes Glaucoma? No MRSA? No HIV? No TB? No Anxiety? No Depression? Yes Cancer? No More? No Additional hx: DEMENTIA BLADDER CONTROL BLE EDEMA Labs: Laboratory Tests 06/24/16 0545: Stl Cyclospora species NOT DETECTED, Stool Rotavirus (PCR) NOT DETECTED, Stool Campylobacter PCR NOT DETECTED, Stool Giardia Lamblia PCR NOT DETECTED, Stl Norovirus GI/GII PCR NOT DETECTED, Adenovirus (PCR) NOT DETECTED, C. difficile Tox (PCR) NOT DETECTED, E. coli (PCR) NOT DETECTED, Yersinia (PCR) NOT DETECTED 06/23/16 1925: Random Gentamicin 6.6 06/23/16 1105: Random Gentamicin 11.2 H Problem List: 1. Sepsis 2. Acute pyelonephritis Plan: GENTAMICIN LEVELS 4-HOUR LEVEL: 11.2 MCG/ML CALCULATED PEAK: 13.65 MCG/ML 12-HOUR LEVEL: 6.6 MCG/ML CALCULATED TROUGH: 0.61 MCG/ML BASED ON LEVELS, RECOMMEND CONTINUING GENTAMICIN 300 MG IV Q48H. at 0939
--- NOTE | 2016-06-24 15:33 | RADIOLOGY REPORT PS360 ---
CHEST PORTABLE-PICC PLACEMENT Ordering Physician: Domenico Cole MD Patient Age: 85 years: Female HISTORY: PICC LINE INSERTION TECHNIQUE: AP portable upright chest COMPARISON is made to 06/22/2016 as well as 10/13/2015 CXR FINDINGS PICC line enters from the left arm transversing the left subclavian with tip at the SVC. . There is slight additional linear density at the right lung base which reflects slight additional linear atelectasis along with minimal scarring... The left lung appears stable and satisfactory. The heart is normal in size. Previous sternotomy and CABG. IMPRESSION: PICC line satisfactory position. PICC line enters from left, with tip at SVC superior to the caval atrial junction. Linear density towards right base may reflect atelectasis along with some minimal linear scarring. Prior CABG. Heart upper normal in size.
[2016-06-24 16:00] VITALS: BP 131/65
[2016-06-24 20:09] VITALS: BP 119/66
[2016-06-24 21:30] VITALS: BP 119/66
[2016-06-25 05:28] VITALS: BP 115/60
[2016-06-25 06:59] LABS: HEMOGLOBIN 11.5 g/dL (12.2-16.2); LYMPH # 1.6 K/mm3 (0.7-4.5); LYMPH % 9.9 % (10-50.0)
[2016-06-25 08:11] VITALS: BP 121/59
--- NOTE | 2016-06-25 08:36 | ACUTE CARE PROGRESS NOTE (QUA) ---
Progress Notes Subjective Date 06/25/16 Time 0730 Note Patient is sitting in bed eating breakfast. Daughter at bedside. She is confused at baseline. PICC line placed without difficulty. No further nausea or vomiting. She is tolerating oral intake well. Alert and oriented to self. Denies pain or shortness of breath. Mild suprapubic discomfort. Normoactive bowel sounds. Rate and rhythm regular, trace ankle edema Patient/family reports: feeling better Nursing reports: no complaints Objective Findings Last VS-Temp:97.9 B/P:121/59 Pulse:86 Resp:18 SaO2:94 OXYGEN Last weight lbs:166 oz:7 K.496 Method:Bed Scales Reviewed: medications, vital signs, lab results Assessment/Plan Problem List 1. Sepsis Assessment/Plan: Continue IV antibiotics. Plan to D/C back to [facility] tomorrow for a total of 14 days of antibiotic therapy. Qualifiers: Sepsis type: sepsis due to unspecified organism Qualified Code: A41.9 - Sepsis, unspecified organism 2. Acute pyelonephritis 3. Hypoxia Patient condition Improving Plan: continue current care (see above) This inpt stay is expected to cross 2 MNs from start of care Yes at 0836
[2016-06-25 09:39] LABS: NEUTROPHILS 86 % (42-76)
[2016-06-25 16:32] VITALS: BP 123/61
[2016-06-25 20:34] VITALS: BP 119/61
[2016-06-25 20:46] VITALS: BP 119/61
[2016-06-26 04:00] VITALS: BP 106/55
--- NOTE | 2016-06-26 07:49 | ACUTE CARE PROGRESS NOTE (QUA) ---
Progress Notes Subjective Date 06/26/16 Time 0747 Note Patient had a restless night with some hospital-induced psychosis but no behavior issues vis--vis aggressiveness or dangerous wandering. Lungs are clear, abdomen soft, heart rate regular. Extremities are warm and well perfused. Objective Findings Last VS-Temp:97.5 B/P:106/55 Pulse:68 Resp:18 SaO2:95 OXYGEN Last weight lbs:166 oz:7 K.495 Method:Bed Scales Assessment/Plan Problem List 1. Sepsis Qualifiers: Sepsis type: sepsis due to unspecified organism Qualified Code: A41.9 - Sepsis, unspecified organism 2. Acute pyelonephritis 3. Hypoxia Patient condition Improving Plan: continue current care, arrange facility transfer This inpt stay is expected to cross 2 MNs from start of care Yes Antibiotic Stewardship (2) Current Culture Results Microbiology 06/22 1345 BLOOD: Anaerobic Blood Culture - RES 06/22 1345 BLOOD: Aerobic Blood Culture - RES ESCHERICHIA COLI 06/22 1340 URINE,FO: Urine Culture - CAN Cancelled: @DUPLICATE 06/22 1340 URINE CATH: Urine Culture - COMP ESCHERICHIA COLI Infxn that will respond? Yes Right drug,dose,and route? Yes More targeted antbx? No How long atbx needed? 10 at 0748
[2016-06-26 07:59] VITALS: BP 116/57
[2016-06-26 08:59] VITALS: BP 116/57
[2016-06-26 16:00] VITALS: BP 105/56
[2016-06-26 20:22] VITALS: BP 111/52
[2016-06-27 04:19] VITALS: BP 126/53
[2016-06-27 06:13] LABS: HEMOGLOBIN 11.8 g/dL (12.2-16.2); LYMPH # 1.6 K/mm3 (0.7-4.5); LYMPH % 10.6 % (10-50.0)
[2016-06-27 07:55] VITALS: BP 106/54
[2016-06-27 08:06] LABS: NEUTROPHILS 84 % (42-76)
[2016-06-27] MEDS ORDERED: AMERINET CHOICE1 PD3 IV (08:07)
[2016-06-27] MEDS ORDERED: INVANZ1 G1 IM (08:07)
--- NOTE | 2016-06-27 08:09 | ACUTE CARE PROGRESS NOTE (QUA) ---
Progress Notes Subjective Date 06/27/16 Time 0808 Note Patient remains confused, continues to have very weak but is afebrile. She is pleasant and talkative, and her lung churchill are clear, heart rate irregular, abdomen soft. Extremities are warm and well perfused. Maxwell catheter draining clear yellow urine Objective Findings Last VS-Temp:98.5 B/P:126/53 Pulse:81 Resp:22 SaO2:95 OXYGEN Last weight lbs:164 oz:7 K.588 Method:Bed Scales Assessment/Plan Problem List 1. Sepsis Qualifiers: Sepsis type: sepsis due to unspecified organism Qualified Code: A41.9 - Sepsis, unspecified organism 2. Acute pyelonephritis 3. Hypoxia Patient condition Improving Plan: initiate discharge plan This inpt stay is expected to cross 2 MNs from start of care Yes Antibiotic Stewardship (2) Infxn that will respond? Yes Right drug,dose,and route? Yes More targeted antbx? No at 0808
--- NOTE | 2016-06-27 08:11 | DISCHARGE SUMMARY STANDARD ---
Demographics Admit date: 06/22/16 Discharge date: 06/27/16 History of present illness History of present illness 85-year-old snf resident with Alzheimer's dementia and history of repetitive urinary tract infections who was brought to the emergency department because of fever, mental status change and diarrhea. Found to have leukocytosis, evidence of sepsis and admitted to hospital for sepsis protocol, broad-spectrum antibiotics and fluids. This morning daughter reports that she rested comfortably overnight, but has not been able to eat or have significant conversations. Hospital Course Hospital Course: Patient was admitted, because her picture of blood stream infection/severe sepsis sepsis protocol was followed and the blood cultures and urine cultures were done. Blood culture showed Escherichia coli, ESBL positive, sensitive to noted antibiotics. And Zosyn and Invanz were started and adjusted for her renal and dose impairment. Patient improved in a stepwise fashion with improving leukocytosis, diminishing fever curves and improving hemodynamic status. Over the next couple of days she met goals for returning to her snf, PICC line was inserted in the left antecubital fossa, however she remained very weak and unable to feed herself. Maxwell catheter remained in place because of significant immobility and fall risk. Patient will be transferred back to her snf today, 10 days of antibiotics intravenously through PICC line as noted in the discharge medication list. Of note I discontinued her diuretics and her narcotic pain medication as Tylenol here seems to have done better for her without as much mental status change. Sundowning has improved here and I think will continue to improve at the snf. Please note she needs PT/OT evaluation for feeding, self-care activities and strengthening, speech therapy evaluation for feeding, and bladder training for discontinuing her Maxwell catheter when she is able to mobilize herself per PT/OT. Please note we'll continue to respect her DNR status. Discharge diagnoses Problem List 1. Sepsis 2. Acute pyelonephritis 3. Hypoxia Medications Medications: Discharge meds are as noted. Follow up Follow up in office in: 4 DAYS with: DANIKA ANTONY APRN at 0811
--- NOTE | 2016-06-27 08:11 | DISCHARGE SUMMARY STANDARD ---
Demographics Admit date: 06/22/16 Discharge date: 06/27/16 History of present illness History of present illness 85-year-old residential resident with Alzheimer's dementia and history of repetitive urinary tract infections who was brought to the emergency department because of fever, mental status change and diarrhea. Found to have leukocytosis, evidence of sepsis and admitted to hospital for sepsis protocol, broad-spectrum antibiotics and fluids. This morning daughter reports that she rested comfortably overnight, but has not been able to eat or have significant conversations. Hospital Course Hospital Course: Patient was admitted, because her picture of blood stream infection/severe sepsis sepsis protocol was followed and the blood cultures and urine cultures were done. Blood culture showed Escherichia coli, ESBL positive, sensitive to noted antibiotics. And Zosyn and Invanz were started and adjusted for her renal and dose impairment. Patient improved in a stepwise fashion with improving leukocytosis, diminishing fever curves and improving hemodynamic status. Over the next couple of days she met goals for returning to her residential, PICC line was inserted in the left antecubital fossa, however she remained very weak and unable to feed herself. Maxwell catheter remained in place because of significant immobility and fall risk. Patient will be transferred back to her residential today, 10 days of antibiotics intravenously through PICC line as noted in the discharge medication list. Of note I discontinued her diuretics and her narcotic pain medication as Tylenol here seems to have done better for her without as much mental status change. Sundowning has improved here and I think will continue to improve at the residential. Please note she needs PT/OT evaluation for feeding, self-care activities and strengthening, speech therapy evaluation for feeding, and bladder training for discontinuing her Maxwell catheter when she is able to mobilize herself per PT/OT. Please note we'll continue to respect her DNR status. Discharge diagnoses Problem List 1. Sepsis 2. Acute pyelonephritis 3. Hypoxia Medications Medications: Discharge meds are as noted. Follow up Follow up in office in: 4 DAYS with: DANIKA ANTONY APRN at 0811
[2016-06-27 08:22] VITALS: BP 126/53
[2016-06-27 09:45] VITALS: BP 126/53
== END 2016-06-27 10:30 | DRG 872 ==
LOC: ER 12:34 → 2ND 17:06
PROVIDERS: General Practice; Internal Medicine Adolescent Medicine
PROC: 05HA33Z Insertion of Infusion Device into Left Brachial Vein, Percutaneous Approach (ICD-10-PCS; principal; 2016-06-24)
DX: A41.51 Sepsis due to Escherichia coli [E. coli] (principal); J44.9 Chronic obstructive pulmonary disease, unspecified; G30.9 Alzheimer's disease, unspecified; F02.80 Dementia in other diseases classified elsewhere, unspecified severity, without behavioral disturbance, psychotic disturbance, mood disturbance, and anxiety; N10 Acute pyelonephritis; I10 Essential (primary) hypertension; Z95.1 Presence of aortocoronary bypass graft
CPT/HCPCS: C1751; J1335; J2405; J2543